=== PATIENT | female | born 1975 | race African-American/Black ===

== ENCOUNTER 2019-07-29 11:25 | Emergency (ER) | payer OTHER ==
[~2019-07-29] VITALS: Ht 167.6 cm; Wt 88.0 kg
[2019-07-29 12:57] LABS: BASOPHILS % 1.1 % (0.0-2.0); EOSINOPHILS % 0.8 % (0.0-5.0); HEMATOCRIT. 31.5 % (36.0-48.0); HEMOGLOBIN. 10.3 g/dL (12.0-16.0); LYMPHOCYTES % 22.4 % (20.0-50.0); MEAN CORPUSCULAR HEMOGLOBIN 25.4 pg (28.0-32.0); MEAN CORPUSCULAR VOLUME 77.5 fL (81.0-99.0); MEAN PLATELET VOLUME 8.9 fl (7.4-10.4); NEUTROPHILS % 72.7 % (40.0-76.0); PLATELET 235 x1000/uL (130-400); RED BLOOD CELL COUNT 4.07 mill/uL (4.2-5.4); RED CELL DISTRIBUTION WIDTH 17.1 % (11.6-14.6)
[2019-07-29 13:03] LABS: CHLORIDE 107 mEq/L (98-107)
[2019-07-29 13:27] LABS: B-HCG QUANTITATIVE 11906 mIU/mL (<3)
[2019-07-29 14:52] VITALS: BP 178/99
== END 2019-07-29 14:53 | disposition home or self-care (01) ==
LOC: ER 11:25
DX: O20.0 Threatened abortion (principal); O34.11 Maternal care for benign tumor of corpus uteri, first trimester; O16.1 Unspecified maternal hypertension, first trimester; O34.81 Maternal care for other abnormalities of pelvic organs, first trimester; N83.8 Other noninflammatory disorders of ovary, fallopian tube and broad ligament; O09.521 Supervision of elderly multigravida, first trimester; Z3A.01 Less than 8 weeks gestation of pregnancy
CPT/HCPCS: 36415; 76801; 81025; 84702; 86850; 86900; 99284

== ENCOUNTER 2021-09-30 10:49 | Inpatient (IN) | payer OTHER ==
[~2021-09-30] VITALS: Ht 157.5 cm; Wt 68.9 kg
[2021-09-30] MEDS ORDERED: AMLODIPINE 10MG TABLET PO ONE (11:00)
[2021-09-30] MEDS ORDERED: ENALAPRIL 2.5MG/2ML VIAL 2ML IV ONE (11:00)
[2021-09-30 11:13] LABS: BASOPHILS % 1.2 % (0.0-2.0); EOSINOPHILS % 1.7 % (0.0-5.0); HEMATOCRIT. 30.8 % (36.0-48.0); HEMOGLOBIN. 9.4 g/dL (12.0-16.0); LYMPHOCYTES % 19.3 % (20.0-50.0); MEAN CORPUSCULAR HEMOGLOBIN 19.7 pg (28.0-32.0); MEAN CORPUSCULAR VOLUME 64.7 fL (81.0-99.0); MEAN PLATELET VOLUME 7.9 fl (7.4-10.4); MONOCYTES % 5.6 % (2.0-8.0); NEUTROPHILS % 72.2 % (40.0-76.0); PLATELET 338 x1000/uL (130-400); RED BLOOD CELL COUNT 4.75 mill/uL (4.2-5.4); RED CELL DISTRIBUTION WIDTH 18.4 % (11.6-14.6)
[2021-09-30] MEDS ORDERED: AMLO5TAB88 MT (11:13)
[2021-09-30] MEDS ORDERED: OLME1TAB88 MT (11:13)
[2021-09-30] MEDS ORDERED: ENALAPRIL 1.25MG/ML VIAL 1ML IV NR (11:15)
[2021-09-30 11:19] LABS: CHLORIDE 103 mEq/L (98-107)
[2021-09-30 11:41] LABS: PLATELET ESTIMATE NORMAL
[2021-09-30] MEDS ORDERED: ENOXAPARIN 60MG/0.6ML SYR SUBCUT ONE (12:00)
[2021-09-30] MEDS ORDERED: POTASSIUM CHLORIDE 20MEQ/PACKET PO ONE (12:00)
[2021-09-30] MEDS ORDERED: POTASSIUM CHLORIDE INJ 40 MEQ in DEXT 5% WATER 500 ML IV ONE (12:00)
[2021-09-30] MEDS ORDERED: ENOXAPARIN 80MG/0.8ML SYR SUBCUT NR (12:15)
[2021-09-30 12:31] LABS: CLARITY URINE CLOUDY (CLEAR); COLOR URINE YELLOW (YELLOW); KETONES URINE TRACE (NEGATIVE); LEUKOCYTE ESTERASE URINE NEGATIVE (NEGATIVE); NITRITE URINE NEGATIVE (NEGATIVE); OCCULT BLOOD URINE NEGATIVE (NEGATIVE); PH URINE 6.5 (4.5-8.0); PROTEIN URINE 2+ (NEGATIVE); SPECIFIC GRAVITY URINE 1.014 (1.005-1.030); UROBILINOGEN URINE 0.2 E.U./dL (0.2-1.0)
[2021-09-30] MEDS: KCL 20MEQ/100ML X 2 FOR TOTAL KCL 40MEQ/200ML IV SCH (13:01)
[2021-09-30] MEDS ORDERED: MAGNESIUM/ALUMINUM HYDROXIDE/SIMETHICONE 30ML UDC PO PRN (17:15)
[2021-09-30] MEDS ORDERED: ONDANSETRON HCL 4MG/2ML INJ IV PRN (17:15)
[2021-09-30] MEDS: AMLODIPINE 10MG TABLET PO SCH (17:15)
[2021-09-30] MEDS ORDERED: DOCUSATE SODIUM 100MG CAPSULE PO PRN (17:15)
[2021-09-30] MEDS ORDERED: ACETAMINOPHEN 325MG TABLET PO PRN (17:15)
[2021-09-30] MEDS ORDERED: HYDROCODONE/ACETAMINOPHEN 5/325MG TABLET PO PRN (17:15)
[2021-09-30] MEDS ORDERED: CLONIDINE 0.1MG TABLET PO PRN (17:15)
[2021-09-30] MEDS ORDERED: NALOXONE HCL 0.4MG/ML VIAL IV PRN (17:30)
[2021-09-30] MEDS ORDERED: ASPIRIN 325MG EC TABLET PO ONE (18:30)
[2021-09-30] MEDS ORDERED: NITROGLYCERIN 0.4MG TABLET SL SL ONE (18:45)
[2021-09-30] MEDS: HYDRALAZINE HCL 25MG TABLET PO SCH (21:00)
[2021-09-30] MEDS: METOPROLOL TARTRATE 25MG TABLET PO SCH (21:00)
[2021-10-01 01:26] VITALS: BP 171/101
[2021-10-01 02:01] VITALS: BP 171/101
[2021-10-01 04:00] VITALS: BP 164/94
[2021-10-01 08:00] VITALS: BP 183/97
[2021-10-01] MEDS: METOPROLOL TARTRATE 25MG TABLET PO SCH ×2 (09:00→21:26)
[2021-10-01 09:22] LABS: CHLORIDE 106 mEq/L (98-107)
[2021-10-01 09:29] LABS: LDL CHOLESTEROL 92 mg/dL (5-100)
[2021-10-01 09:30] LABS: HDL CHOLESTEROL 36 mg/dL (40-59)
[2021-10-01] MEDS ORDERED: POTASSIUM CHLORIDE INJ 40 MEQ in DEXT 5% WATER 250 ML IV ONE (09:30)
[2021-10-01] MEDS ORDERED: POTASSIUM CHLORIDE 20MEQ TABLET SR PO NR (09:30)
[2021-10-01 09:41] LABS: BASOPHILS % 0.8 % (0.0-2.0); EOSINOPHILS % 5.7 % (0.0-5.0); HEMATOCRIT. 30.2 % (36.0-48.0); HEMOGLOBIN. 9.3 g/dL (12.0-16.0); LYMPHOCYTES % 29.8 % (20.0-50.0); MEAN CORPUSCULAR HEMOGLOBIN 19.9 pg (28.0-32.0); MEAN CORPUSCULAR VOLUME 64.7 fL (81.0-99.0); MEAN PLATELET VOLUME 8.3 fl (7.4-10.4); MONOCYTES % 6.2 % (2.0-8.0); NEUTROPHILS % 57.5 % (40.0-76.0); PLATELET 294 x1000/uL (130-400); RED BLOOD CELL COUNT 4.67 mill/uL (4.2-5.4); RED CELL DISTRIBUTION WIDTH 18.2 % (11.6-14.6)
[2021-10-01] MEDS: KCL 20MEQ/100ML X 2 FOR TOTAL KCL 40MEQ/200ML IV SCH ×3 (10:38→13:21)
[2021-10-01] MEDS: AMLODIPINE 10MG TABLET PO SCH (10:39)
[2021-10-01] MEDS: HYDRALAZINE HCL 25MG TABLET PO SCH ×3 (10:39→21:26)
[2021-10-01] MEDS: ASPIRIN 81MG EC TABLET PO SCH (10:40)
[2021-10-01 12:00] VITALS: BP 158/86
[2021-10-01] MEDS: CLONIDINE 0.1MG TABLET PO SCH ×2 (13:09→21:26)
[2021-10-01 20:00] VITALS: BP 162/95
[2021-10-02] VITALS: BP 142/87
[2021-10-02 04:00] VITALS: BP 165/95
[2021-10-02] MEDS: HYDRALAZINE HCL 25MG TABLET PO SCH ×3 (05:37→21:25)
[2021-10-02] MEDS: CLONIDINE 0.1MG TABLET PO SCH ×3 (05:37→23:10)
[2021-10-02 08:00] VITALS: BP 132/78
[2021-10-02] MEDS: AMLODIPINE 10MG TABLET PO SCH (09:04)
[2021-10-02] MEDS: METOPROLOL TARTRATE 25MG TABLET PO SCH ×2 (09:04→20:21)
[2021-10-02] MEDS: POTASSIUM CHLORIDE 20MEQ TABLET SR PO SCH (09:04)
[2021-10-02] MEDS: ASPIRIN 81MG EC TABLET PO SCH (09:04)
[2021-10-02 09:05] LABS: BASOPHILS % 0.5 % (0.0-2.0); EOSINOPHILS % 3.6 % (0.0-5.0); HEMATOCRIT. 30.7 % (36.0-48.0); HEMOGLOBIN. 9.2 g/dL (12.0-16.0); LYMPHOCYTES % 25.1 % (20.0-50.0); MEAN CORPUSCULAR HEMOGLOBIN 19.6 pg (28.0-32.0); MEAN CORPUSCULAR VOLUME 65.3 fL (81.0-99.0); MEAN PLATELET VOLUME 8.4 fl (7.4-10.4); MONOCYTES % 6.2 % (2.0-8.0); NEUTROPHILS % 64.6 % (40.0-76.0); PLATELET 297 x1000/uL (130-400); RED CELL DISTRIBUTION WIDTH 18.4 % (11.6-14.6)
[2021-10-02 12:00] VITALS: BP 135/95
[2021-10-02 16:00] VITALS: BP 147/82
[2021-10-02 20:00] VITALS: BP 138/83
[2021-10-03] VITALS: BP 130/80
[2021-10-03 04:00] VITALS: BP 152/92
[2021-10-03] MEDS: CLONIDINE 0.1MG TABLET PO SCH (06:21)
[2021-10-03] MEDS: HYDRALAZINE HCL 25MG TABLET PO SCH (06:22)
[2021-10-03 08:00] VITALS: BP 132/78
[2021-10-03 08:18] LABS: BASOPHILS % 0.8 % (0.0-2.0); EOSINOPHILS % 2.3 % (0.0-5.0); HEMATOCRIT. 29.3 % (36.0-48.0); HEMOGLOBIN. 9.1 g/dL (12.0-16.0); LYMPHOCYTES % 25.3 % (20.0-50.0); MEAN CORPUSCULAR HEMOGLOBIN 19.9 pg (28.0-32.0); MEAN CORPUSCULAR VOLUME 64.2 fL (81.0-99.0); MEAN PLATELET VOLUME 8.7 fl (7.4-10.4); NEUTROPHILS % 66.6 % (40.0-76.0); PLATELET 281 x1000/uL (130-400); RED BLOOD CELL COUNT 4.57 mill/uL (4.2-5.4); RED CELL DISTRIBUTION WIDTH 18.3 % (11.6-14.6)
[2021-10-03] MEDS: METOPROLOL TARTRATE 25MG TABLET PO SCH (08:35)
[2021-10-03] MEDS: POTASSIUM CHLORIDE 20MEQ TABLET SR PO SCH (08:36)
[2021-10-03] MEDS: ASPIRIN 81MG EC TABLET PO SCH (08:36)
[2021-10-03] MEDS: AMLODIPINE 10MG TABLET PO SCH (08:36)
[2021-10-03 09:59] VITALS: BP 132/78
[2021-10-03] MEDS ORDERED: METOPROLOL TARTRATE 50MG TABLET PO SCH (21:00)
== END 2021-10-03 12:15 | disposition home or self-care (01) | DRG 720 ==
LOC: ER 10:49 → MICUSO 14:02 → EDBEDREQTM 14:05 → EDBEDREQ 14:05 → 7EST 23:18
PROVIDERS: ADMIT Hospitalist; ATTEND Hospitalist
DX: A41.89 Other specified sepsis (principal); I21.4 Non-ST elevation (NSTEMI) myocardial infarction; U07.1 COVID-19; I16.0 Hypertensive urgency; E87.6 Hypokalemia; F84.0 Autistic disorder; I10 Essential (primary) hypertension; K08.89 Other specified disorders of teeth and supporting structures; Z79.82 Long term (current) use of aspirin; Z82.3 Family history of stroke; Z82.49 Family history of ischemic heart disease and other diseases of the circulatory system; Z98.891 History of uterine scar from previous surgery; Z87.891 Personal history of nicotine dependence
CPT/HCPCS: 36415; 71045; 80048; 80053; 80061; 81003; 82962; 83735; 83880; 84132; 84443; 84484; 85025; 87426; 93005; 93970; 99285; C1893; J1650; J3480; J3490; J7040; J7060